=== PATIENT | female | born 1970 | race Caucasian/White ===

== ENCOUNTER → 2017-09-05 | Outpatient (CLI) | payer OTHER ==
--- NOTE | 2017-09-06 15:23 | MAMMOGRAPHY REPORT ---
BILATERAL DIGITAL SCREENING MAMMOGRAM TOMOSYNTHESIS WITH CAD: 09/05/2017 CLINICAL HISTORY: Routine screening. Patient has no complaints. TECHNIQUE: Breast tomosynthesis in addition to standard 2D mammography was performed. Current study was also evaluated with a Computer Aided Detection (CAD) system. COMPARISON: Comparison is made to exams dated: 05/17/2016 mammogram - [facility] a nd 10/06/2014 mammogram - [facility]. BREAST COMPOSITION: The tissue of both breasts is almost entirely fatty. FINDINGS: The parenchymal pattern is unchanged. No developing mass, architectural distortion or clus ter of suspicious microcalcifications is seen in either breast. IMPRESSION: ACR BI-RADS CATEGORY 2: BENIGN There is no mammographic evidence of malignancy. A 1 year screening mammogram is recommended. The pa tient will receive written notification of the results. Approximately 10% of breast cancers are not detected with mammography. A negative mammographic report should not delay biopsy if a clinically suggestive mass is present. Dolores Rob M.D. ay/:09/05/2017 16:57:20 Electromatic Typist: Penny STOVALL(R)(M), [facility] letter sent: Normal 1/2 BI-RADS Code: ACR BI-RADS Category 2: Benign
== END | disposition home or self-care (01) ==
LOC: C.MAMM 13:56
PROVIDERS: ATTEND Family Medicine
DX: Z12.31 Encounter for screening mammogram for malignant neoplasm of breast (principal)

== ENCOUNTER → 2017-09-18 | Outpatient (CLI) | payer OTHER ==
--- NOTE | 2017-09-18 10:43 | DIAGNOSTIC IMAGING REPORT ---
CHEST 2 VIEWS ROUTINE CLINICAL HISTORY: Cough. Chest pain. COMPARISON STUDY: No previous studies for comparison. FINDINGS: Lung volumes are normal. There is no pneumothorax or pleural effusion. No consolidation is identified. There is no evidence for pulmonary edema. Left ribs are better depicted on the left rib series. IMPRESSION: No acute cardiopulmonary findings. Electronically signed by: Viraj Harris M.D. 09/18/2017 10:41 AM Dictated Date/Time: 09/18/2017 10:40 AM
--- NOTE | 2017-09-18 10:45 | DIAGNOSTIC IMAGING REPORT ---
L RIBS UNILATERAL MIN 2 VIEWS HISTORY: 47 years-old Female COUGH, CHEST PAIN acute cough with atypical chest pain COMPARISON: Chest radiographs 09/18/2017 TECHNIQUE: 4 views of the left ribs FINDINGS: The left-sided ribs appear intact. No acute displaced rib fracture is identified. Linear subsegmental left basilar opacities suggest atelectasis. Irregular density projecting over the superior pole left kidney suggest nephrolithiasis. IMPRESSION: No acute rib fracture identified. The above report was generated using voice recognition software. It may contain grammatical, syntax or spelling errors. Electronically signed by: Bryant Ramos M.D. 09/18/2017 10:43 AM Dictated Date/Time: 09/18/2017 10:41 AM
== END | disposition home or self-care (01) ==
LOC: C.RAD1850 10:18
PROVIDERS: ATTEND Family Medicine
DX: R05 Cough (principal); R07.89 Other chest pain; Z88.6 Allergy status to analgesic agent

== ENCOUNTER → 2017-09-24 | Outpatient (CLI) | payer OTHER ==
--- NOTE | 2017-09-24 15:05 | DIAGNOSTIC IMAGING REPORT ---
TWO VIEW CHEST; RIGHT-SIDED RIB SERIES CLINICAL HISTORY: Cough. Right-sided chest wall pain. FINDINGS: PA and lateral chest radiographs with 5 additional views may right-sided rib series are compared to study dated 09/18/2017. The cardiomediastinal silhouette is unremarkable. The lungs and pleural spaces are clear. There is no pneumothorax. There is no radiographic evidence of right-sided rib fracture on the rib series as clinically queried. The remainder of the bony thorax appears intact. IMPRESSION: 1. The lungs are clear. 2. There is no radiographic evidence of right-sided rib fracture on the rib series as clinically queried. Electronically signed by: Francis Lawrence M.D. 09/24/2017 3:03 PM Dictated Date/Time: 09/24/2017 3:01 PM
== END | disposition home or self-care (01) ==
LOC: C.RAD 14:19
PROVIDERS: ATTEND Nurse Practitioner Family
DX: R07.81 Pleurodynia (principal); Z87.09 Personal history of other diseases of the respiratory system